=== PATIENT | female | born 1960 | race Caucasian/White ===

== ENCOUNTER 2023-08-18 07:21 | Day surgery (SDC) | payer OTHER ==
[~2023-08-18] VITALS: Ht 167.6 cm; Wt 84.8 kg
[2023-08-18] MEDS ORDERED: diphenhydrAMINE 50 MG/ML VIAL ONE ×2 (08:20)
[2023-08-18] MEDS ORDERED: fentaNYL citrate 0.05 MG/ML VIAL ONE (08:20)
[2023-08-18] MEDS ORDERED: MIDAZOLAM 5 MG/5 ML VIAL ONE (08:21)
[2023-08-18] MEDS: MIDAZOLAM 5 MG/5 ML VIAL IV ONE (09:16)
[2023-08-18] MEDS: fentaNYL citrate 0.05 MG/ML VIAL IVP ONE (09:17)
[2023-08-18] MEDS: LIDOCAINE 2% 100 MG/5 ML UJET TP ONE (09:22)
== END 2023-08-18 11:00 | disposition home or self-care (01) ==
LOC: MDS 07:21 → MMU 07:22 → MDS 11:00
PROVIDERS: ATTEND Internal Medicine Gastroenterology
DX: R19.7 Diarrhea, unspecified (principal); K92.1 Melena; R11.0 Nausea; K64.8 Other hemorrhoids; E66.9 Obesity, unspecified; Z68.30 Body mass index [BMI] 30.0-30.9, adult; Z90.49 Acquired absence of other specified parts of digestive tract; Z86.010 Personal history of colon polyps; Z88.1 Allergy status to other antibiotic agents; Z79.899 Other long term (current) drug therapy; Z98.890 Other specified postprocedural states
CPT/HCPCS: 45378; J1200; J2250; J3010